=== PATIENT | female | born 1935 | race Caucasian/White ===

== ENCOUNTER → 2016-09-26 | Outpatient (CLI) | payer MEDICARE, OTHER ==
[~2016-09-26] MED LIST: TOPROL XL25 MG PO
== END ==
LOC: KOH-I 10:00
DX: R91.8 Other nonspecific abnormal finding of lung field (principal)
CPT/HCPCS: 71250

== ENCOUNTER → 2020-06-30 | Outpatient (CLI) | payer MEDICARE, OTHER ==
[~2020-06-30] MED LIST changes: +OMNICEF 300 MG300 MG PO
[2020-06-30 11:22] LABS: HEMOGLOBIN 9.3 gm/dl (12.3-15.3); RED BLOOD COUNT 2.91 M/UL (4.00-5.10)
[2020-07-01 08:16] LABS: THYROXINE (T4) 5.6 ug/dL (4.5-12.0)
[2020-07-02 04:12] LABS: VITAMIN D, 25-HYDROXY 31.9 ng/mL (30.0-100.0)
== END ==
LOC: LAB 09:59
PROVIDERS: Nurse Practitioner Family
DX: I25.10 Atherosclerotic heart disease of native coronary artery without angina pectoris (principal); E78.5 Hyperlipidemia, unspecified; R53.82 Chronic fatigue, unspecified; E55.9 Vitamin D deficiency, unspecified; M25.50 Pain in unspecified joint; E03.9 Hypothyroidism, unspecified
CPT/HCPCS: 36415; 80053; 80061; 84436; 84443; 84481; 85025; 85652; 86140

== ENCOUNTER → 2020-07-06 | Outpatient (CLI) | payer MEDICARE, OTHER | LOC: LAB 15:21 | PROVIDERS: Nurse Practitioner | DX: D64.9 Anemia, unspecified (principal); E87.6 Hypokalemia; R31.9 Hematuria, unspecified | CPT/HCPCS: 36415; 80053; 82728; 83540; 83550 ==

== ENCOUNTER → 2020-08-28 | Outpatient (CLI) | payer MEDICARE, OTHER ==
[2020-08-28 14:09] LABS: RED BLOOD COUNT 2.78 M/UL (4.00-5.10); WHITE BLOOD COUNT 4.1 K/UL (4.5-11.0)
== END ==
LOC: LAB 13:20
PROVIDERS: Nurse Practitioner
DX: D64.9 Anemia, unspecified (principal)
CPT/HCPCS: 36415; 85025

== ENCOUNTER → 2020-10-02 | Outpatient (CLI) | payer MEDICARE, OTHER ==
[2020-10-02 13:07] LABS: RED BLOOD COUNT 2.79 M/UL (4.00-5.10); WHITE BLOOD COUNT 3.8 K/UL (4.5-11.0)
[2020-10-03 08:13] LABS: IMMUNOGLOBULIN A, QN, SERUM 290 mg/dL (64-422); IMMUNOGLOBULIN G, QN, SERUM 2647 mg/dL (586-1602); IMMUNOGLOBULIN M, QN, SERUM 114 mg/dL (26-217)
[2020-10-06 12:10] LABS: HOMOGENEOUS PATTERN >1:1280 (.)
[2020-10-13 10:15] LABS: A/G RATIO 0.8 (0.7-1.7); ALBUMIN 3.3 g/dL (2.9-4.4); ALPHA-1-GLOBULIN 0.2 g/dL (0.0-0.4); ALPHA-2-GLOBULIN 0.6 g/dL (0.4-1.0); BETA GLOBULIN 0.9 g/dL (0.7-1.3); GAMMA GLOBULIN 2.4 g/dL (0.4-1.8); PROTEIN, TOTAL, SERUM 7.3 g/dL (6.0-8.5)
== END ==
LOC: LAB 11:28
PROVIDERS: Internal Medicine Hematology & Oncology
DX: D64.9 Anemia, unspecified (principal); E53.8 Deficiency of other specified B group vitamins
CPT/HCPCS: 36415; 80053; 82607; 82728; 82746; 82784; 83540; 83550; 83615; 83883; 84155; 84165; 85025; 85045; 85652; 86038

== ENCOUNTER → 2021-08-20 | Outpatient (CLI) | payer MEDICARE, OTHER ==
[2021-08-20 15:08] LABS: HEMOGLOBIN 9.8 gm/dl (12.3-15.3); RED BLOOD COUNT 3.01 M/UL (4.00-5.10); WHITE BLOOD COUNT 4.4 K/UL (4.5-11.0)
[2021-08-21 08:15] LABS: THYROXINE (T4) 5.6 ug/dL (4.5-12.0)
== END ==
LOC: LAB 14:07
PROVIDERS: Nurse Practitioner
DX: M10.9 Gout, unspecified (principal); R53.83 Other fatigue; S22.080S Wedge compression fracture of T11-T12 vertebra, sequela; K21.9 Gastro-esophageal reflux disease without esophagitis; J44.9 Chronic obstructive pulmonary disease, unspecified; I10 Essential (primary) hypertension; D64.9 Anemia, unspecified; I48.3 Typical atrial flutter; E55.9 Vitamin D deficiency, unspecified
CPT/HCPCS: 36415; 80053; 80061; 81001; 84436; 84443; 84480; 84550; 85025

== ENCOUNTER → 2021-09-28 | Outpatient (CLI) | payer MEDICARE, OTHER | LOC: LAB 12:36 | DX: R30.0 Dysuria (principal) | CPT/HCPCS: 81001; 87086 ==

== ENCOUNTER 2021-11-22 18:22 | Emergency (ER) | payer MEDICARE, OTHER | END 2021-11-22 19:40 | disposition left against medical advice (07) | LOC: ER1 18:22 | DX: Z53.21 Procedure and treatment not carried out due to patient leaving prior to being seen by health care provider (principal) ==